=== PATIENT | female | born 1995 | race Asian ===

== ENCOUNTER 2019-08-15 09:13 | Emergency (ER) | payer SELFPAY ==
[~2019-08-15] VITALS: Ht 157.5 cm; Wt 52.2 kg
[2019-08-15 09:13] VITALS: BP_SYST 127
--- NOTE | 2019-08-15 09:13 | NUR ---
Patient to ER bed 2 to gown for evaluation. Side rails up. Report given to MANDI Banks.
--- NOTE | 2019-08-15 09:14 | NUR ---
Patient is awake, alert, and oriented x4. Patient was brought in via BLS from [facility] for being stressed out. Patient cut her across her left wrist, stating she was frustrated but has no wish to kill herself or .
--- NOTE | 2019-08-15 09:40 | NUR ---
ER Dr. Guzmán at bedside examining patient.
[2019-08-15 09:45] LABS: BASOPHILS % (AUTO) 0.4 % (0.0-2.0); EOSINOPHILS % (AUTO) 0.1 % (0.0-4.0); HEMATOCRIT 40.9 % (36-48); HEMOGLOBIN 13.4 g/dL (12.0-16.0); LYMPHOCYTES # (AUTO) 0.7 K/uL (1.0-5.5); LYMPHOCYTES % (AUTO) 7.4 % (20.5-51.5); MEAN CORPUSCULAR HEMOGLOBIN 29 pg (27-31); MEAN CORPUSCULAR HGB CONC 33 % (32-36); MEAN CORPUSCULAR VOLUME 88 fL (79.0-98.0); MONOCYTES # (AUTO) 0.7 K/uL (0.0-1.0); MONOCYTES % (AUTO) 8.3 % (1.7-9.3); NEUTROPHILS # (AUTO) 7.4 K/uL (1.8-7.7); NEUTROPHILS % (AUTO) 83.8 % (40.0-70.0); PLATELET COUNT (AUTO) 297 K/uL (130-430); RED BLOOD CELL COUNT(AUTO) 4.65 MIL/uL (4.2-6.2); RED CELL DISTRIBUTION WIDTH 14.9 % (9.0-15.0); WHITE BLOOD COUNT (AUTO) 8.8 K/uL (4.8-10.8)
[2019-08-15 09:51] LABS: ANION GAP 6 (5-15); CALCIUM 8.7 mg/dL (8.4-11.0); CHLORIDE 102 mmol/L (98-107); CREATININE 0.71 mg/dL (0.55-1.30); GLUCOSE 95 mg/dL (70-99); POTASSIUM 3.7 mmol/L (3.5-5.1); SODIUM SERUM 136 mmol/L (136-145); UREA NITROGEN, BLOOD 10 mg/dL (8-21)
[2019-08-15 09:53] LABS: GFR AFRICAN AMERICAN 129 mL/min (>90)
[2019-08-15 09:56] LABS: ALANINE AMINOTRANSFERASE 33 U/L (12-78); ALBUMIN 3.9 g/dL (3.4-4.8); ASPARTATE AMINOTRANSFERASE 23 U/L (10-37); TOTAL BILIRUBIN 0.7 mg/dL (0.0-1.0)
[2019-08-15 09:57] LABS: ALCOHOL, BLOOD < 3 mg/dL (<10)
[2019-08-15 09:58] LABS: BARBITURATE, URINE NEGATIVE (NEG <=200); URINE AMPHETAMINE NEGATIVE (NEG <=500)
[2019-08-15 09:58] LABS: ACETAMINOPHEN < 1 ug/mL (1-30)
[2019-08-15 09:59] LABS: BENZODIAZEPINE, URINE NEGATIVE (NEG <=150); CANNABINOID, URINE NEGATIVE (NEG <=50); COCAINE, URINE NEGATIVE (NEG <=150); METHAMPHETAMINES SCREEN,URINE NEGATIVE (NEG <=500); OPIATE, URINE NEGATIVE (NEG <=100); PHENCYCLIDINE SCREEN,URINE NEGATIVE (NEG <=25); UR TRICYCLIC ANTIDEPRESSANTS NEGATIVE (NEG <=300); URINE METHADONE NEGATIVE (NEG <=200); URINE OXYCODONE SCREEN NEGATIVE (NEG <=100); URINE PROPOXYPHENE SCREEN NEGATIVE (NEG <=300)
[2019-08-15] MEDS ORDERED: LIDOCAINE 1% 10 MG/ML, 20 ML MDV INJ ONE (10:00)
--- NOTE | 2019-08-15 10:05 | NUR ---
EKG done and given to
--- NOTE | 2019-08-15 10:11 | NUR ---
Dr. Guzmán at the bedside stitches pt's left wrist lac. Pt is tolerating well.
--- NOTE | 2019-08-15 10:33 | NUR ---
Patient given written and verbal discharge instructions and verbalizes understanding. ER MD discussed with patient the results and treatment provided. Patient in stable condition. ID arm band removed. Patient educated on pain management and to follow up with PMD. Pain Scale 0/10. Opportunity for questions provided and answered. Medication side effect fact sheet provided.
== END 2019-08-15 10:32 | disposition home or self-care (01) ==
LOC: SED 09:13
DX: S61.512A Laceration without foreign body of left wrist, initial encounter (principal); R45.851 Suicidal ideations; W26.8XXA Contact with other sharp object(s), not elsewhere classified, initial encounter; Y93.89 Activity, other specified; Y92.89 Other specified places as the place of occurrence of the external cause; Y99.8 Other external cause status
CPT/HCPCS: 12001; 36415; 80053; 80307; 85025; 93005; 99284; G0480; G0481; G0482; J2001